=== PATIENT | female | born 1945 | race Caucasian/White ===

== ENCOUNTER 2016-10-20 21:41 | Inpatient (IN) | payer OTHER ==
[~2016-10-20] VITALS: Ht 152.4 cm; Wt 77.3 kg
[~2016-10-20 21:41] MED LIST: ASPIRIN ADULT L81 M1 PO; CLOPIDOGREL75 MG PO; ISOSORBIDE MONO30 MG PO; METFORMIN HCL500 MG PO; METOPROLOL TART25 MG PO; SIMVASTATIN80 MG PO
--- NOTE | 2016-10-20 23:35 | DIAGNOSTIC IMAGING REPORT ---
PROCEDURE: XR ABDOMEN 1 VIEW INDICATION: VOMITING TECHNIQUE: AP upright view. COMPARISON: None. FINDINGS: There are moderately dilated multiple small bowel loops with air-fluid levels. There is no evidence of free air. There are mild to moderate degenerative changes of the lumbar spine. IMPRESSION: 1. Moderately dilated small bowel loops compatible with obstruction versus ileus.
--- NOTE | 2016-10-20 23:52 | DIAGNOSTIC IMAGING REPORT ---
PROCEDURE: CT ABD/PELVIS WITH CONTRAST INDICATION: Abdominal pain. Vomiting. History of umbilical hernia. TECHNIQUE: 125 ml of Isovue 300 were injected intravenously and axial images were obtained of the entire abdomen and pelvis with sagittal and coronal reformations. COMPARISON: None. FINDINGS: ABDOMEN: There are moderately dilated small bowel loops with transition point in the dxi-cv-gwkics ileum. There is moderate fluid in the right colon. Appendix is not visualized. There are two periumbilical abdominal wall hernias (2 cm and 3 cm) which contain edematous intra-abdominal lipomatous tissue. While there is no evidence of bowel herniation, moderately dilated bowel loops are seen just deep to the defects. There are multiple small calcified gallstones (incidental finding). Liver, spleen, pancreas, kidneys, and aorta (moderate calcified atheromatous changes) are normal. Mild degenerative changes of the lumbar spine. PELVIS: Uterus and adnexal structures are normal. No evidence of free fluid. IMPRESSION: 1. Moderately dilated small bowel loops with transition point in the uoa-qh-huvvuw ileum. Findings are compatible with small bowel obstruction. 2. There are two periumbilical hernia defects containing edematous intra-abdominal lipomatous tissue. While there is no evidence of bowel herniation, distended bowel loops are seen just deep to these defects and may be related or contributing to ileus or obstruction. 3. Cholelithiasis (incidental finding). 4. Findings discussed with Dr. Shorty Schaffer. All CT scans at this facility use dose modulation, iterative reconstruction, and/or weight-based dosing when appropriate to reduce radiation dose to as low as reasonably achievable.
--- NOTE | 2016-10-20 23:52 | DIAGNOSTIC IMAGING REPORT ---
PROCEDURE: CT ABD/PELVIS WITH CONTRAST INDICATION: Abdominal pain. Vomiting. History of umbilical hernia. TECHNIQUE: 125 ml of Isovue 300 were injected intravenously and axial images were obtained of the entire abdomen and pelvis with sagittal and coronal reformations. COMPARISON: None. FINDINGS: ABDOMEN: There are moderately dilated small bowel loops with transition point in the fap-oc-scmtml ileum. There is moderate fluid in the right colon. Appendix is not visualized. There are two periumbilical abdominal wall hernias (2 cm and 3 cm) which contain edematous intra-abdominal lipomatous tissue. While there is no evidence of bowel herniation, moderately dilated bowel loops are seen just deep to the defects. There are multiple small calcified gallstones (incidental finding). Liver, spleen, pancreas, kidneys, and aorta (moderate calcified atheromatous changes) are normal. Mild degenerative changes of the lumbar spine. PELVIS: Uterus and adnexal structures are normal. No evidence of free fluid. IMPRESSION: 1. Moderately dilated small bowel loops with transition point in the cry-ec-ztvyeb ileum. Findings are compatible with small bowel obstruction. 2. There are two periumbilical hernia defects containing edematous intra-abdominal lipomatous tissue. While there is no evidence of bowel herniation, distended bowel loops are seen just deep to these defects and may be related or contributing to ileus or obstruction. 3. Cholelithiasis (incidental finding). 4. Findings discussed with Dr. Shorty Schaffer. All CT scans at this facility use dose modulation, iterative reconstruction, and/or weight-based dosing when appropriate to reduce radiation dose to as low as reasonably achievable.
[2016-10-21] VITALS (12 sets, daily range): BP systolic 85–157; BP diastolic 48–74
--- NOTE | 2016-10-21 00:40 | ED CLINICAL REPORT ---
Clinical Report - Physicians/Mid Levels [facility] [address] [place] [address] 10/20/2016 21:42 Patient: DARELL SULLIVAN Time Seen: 21:42; initial patient contact. Arrived- By private vehicle. Historian- patient. HISTORY OF PRESENT ILLNESS Chief Complaint: VOMITING. This started yesterday and is still present (worse since this AM). It was abrupt in onset and has been intermittent. The patient has had nausea, vomiting and abdominal pain. No constipation. The illness is described as moderate. Similar symptoms previously: None. Recent medical care: Not recently seen/assessed. REVIEW OF SYSTEMS No fever or difficulty with urination. All systems otherwise negative, except as recorded above. PAST HISTORY Umbilical Hernia. Hypercholesterolemia. Diabetes Mellitus. Coronary Artery Disease. Hypertension. ADDITIONAL SURGERIES: Cardiac stents. Hernia Repair. . Medications: Aspirin Oral (Tablet 81 mg) 1 tablet, day. MetFORMIN HCl Oral 1000mg, 2x a day. Metoprolol Tartrate Oral 12.5mg, twice a day. Simvastatin Oral 80 mg, daily. Allergies: Penicillins. SOCIAL HISTORY Never smoker. No alcohol use or drug use. ADDITIONAL NOTES The nursing notes have been reviewed with agreement regarding the chief complaint, PMH and patient medications and allergies. PHYSICAL EXAM Appearance: Alert. Oriented X3. Appears to be in pain. Patient in mild distress. Eyes: Eyes normal inspection. No scleral icterus. ENT: Dry mucous membranes present. CVS: Tachycardia. Heart sounds normal. Rhythm normal. Respiratory: No respiratory distress. Breath sounds normal. Abdomen: Soft. Moderate tenderness diffusely with guarding present. No rebound tenderness or Vazquez's sign present. Abnormal bowel sounds: diminished and high pitched. No organomegaly. No mass. Distention. Mildly obese. (Periumbilical hernia). Back: Normal inspection. No CVA tenderness. Skin: Normal skin color. No rash. Extremities: No lower extremity edema. Neuro: Oriented X 3. LABS, X-RAYS, AND EKG KUB: Diffuse abnormal gas pattern with air fluid levels. Findings consistent with an obstruction. No pneumoperitoneum. Views: AP. Technique: good. The X-rays were independently viewed by me and interpreted contemporaneously by me. Prior films were not available for comparison. Interpretation time: 22:50. Abdominal CT: 1. Moderately dilated small bowel loops with transition point in the ojl-iz-wfiuso ileum. Findings are compatible with small bowel obstruction. 2. There are two periumbilical hernia defects containing edematous intra-abdominal lipomatous tissue. While there is no evidence of bowel herniation, distended bowel loops are seen just deep to these defects and may be related or contributing to ileus or obstruction. 3. Cholelithiasis (incidental finding). Abdominal CT performed with IV contrast. The study was independently viewed by me, interpreted by the radiologist and discussed with the radiologist. Interpretation time: 00:28. Laboratory Tests: CBC w Diff: (HAKEEM: 10/20/2016 21:50) ( MsgRcvd 10/20/2016 22:23) Final results Test Result Flag Units (Reference) WHITE BLOOD COUNT 5.4 K/uL (4.5-11.5) RED BLOOD COUNT 5.57 H M/uL (4.00-5.20) HEMOGLOBIN 16.5 H gm/dL (12.0-16.0) HEMATOCRIT 49.9 H % (36.0-46.0) MEAN CELL VOLUME 89 fL (80-100) MEAN CORPUSCULAR HGB 30 pg (26-34) MEAN CORPUSCULAR HGB CONC 33 g/dL (31-37) RED CELL DISTRIBUTION WIDTH 13.8 % (11.6-14.8) PLATELET COUNT 235 K/uL (150-400) NEUTROPHIL % 82.9 H % (50-75) LYMPH % 15.2 L % (25-40) MONO % 1.7 L % (3-14) EOSINOPHIL % 0.1 % (0-4) BASOPHIL % 0.1 % (0-2) CMP: (HAKEEM: 10/20/2016 21:50) ( MsgRcvd 10/20/2016 22:34) Final results Test Result Flag Units (Reference) GLUCOSE 228 H mg/dL (70-110) BUN 17 mg/dL (7-18) CREATININE 1.2 mg/dL (0.6-1.3) Estimated GFR 47.07 mL/min Estimated GFR- 57.05 mL/min Note: Persistent reduction over 3 months in eGFR<60 mL/min/1.73 m2 defines CKD. Patients with eGFR values>=60 mL/min/1.73 m2 may also have CKD if evidence ofpersistent proteinuria. Additional information may be foundat www.kidney.org. SODIUM 133 L mmol/L (136-145) POTASSIUM 4.5 mmol/L (3.5-5.1) CHLORIDE 94 L mmol/L (98-107) CARBON DIOXIDE 21 mmol/L (21-32) CALCIUM 10.8 H mg/dL (8.5-10.1) TOTAL PROTEIN 9.2 H g/dL (6.4-8.2) ALBUMIN 4.6 g/dL (3.3-5.0) BILIRUBIN, TOTAL 1.8 H mg/dL (0.0-1.0) ALKALINE PHOSPHATASE 106 U/L (46-116) AST (SGOT) 25 U/L (15-37) ALT (SGPT) 28 U/L (12-78) LIPASE 119 U/L (73-393) AMYLASE 36 U/L (25-115) TROPONIN I <0.05 ng/mL (0.00-1.5) TROPONIN REFERENCE RANGE:<0.1 NEGATIVE0.1-1.5 INDETERMINANT>1.5 POSITIVE . PROGRESS AND PROCEDURES Discussed case with on-call health care provider, (call returned 00:30 Dr. Reyna. Will consult, admit to hospitalist and start SBO orders.). Reviewed test results and need for additional work-up. Agreed upon decision to admit. Health care provider will see patient in hospital. Discussed case with hospitalist, (call returned 00:49). Reviewed test results. Health care provider will see patient in ED. Disposition: Admitted to Acute Care. Condition: good. Admit decision based on need for further evaluation, additional testing and IV hydration and medications. CLINICAL IMPRESSION Partial small bowel obstruction associated with hernia. No gangrene noted with hernia. INSTRUCTIONS Follow-up: Blood pressure screening was not performed during this visit because the patient has an active diagnosis of hypertension. The patient was admitted and blood pressure will be managed during the admission. (Electronically signed by Shorty Schaffer Dr. 03/15/2017 1:16)
--- NOTE | 2016-10-21 00:40 | ED ORDER SUMMARY ---
..... Patient: DARELL SULLIVAN OrderSheet [facility] VisitID: [id number] [place] [address] 71y, F Registration Date/Time: 10/20/2016 ORDER SHEET Weight: 72.5 kg (stated) Allergies: Penicillins GENERAL ORDERS: CBC w Diff Urgent (21:53 10/20/2016 EInderbitzen R.N. verbal order read back to Marcello Trinh) (Ack 21:58 SRedmond) (22:12 EInderbitzen R.N.) CMP Urgent (21:53 10/20/2016 EInderbitzen R.N. verbal order read back to Marcello Trinh) (Ack 21:58 SRedmond) (22:12 EInderbitzen R.N.) UA-Culture if indicated Urgent (21:53 10/20/2016 EInderbitzen R.N. verbal order read back to Marcello Trinh) (Ack 21:58 SRedmond) Amylase Urgent (21:53 10/20/2016 EInderbitzen R.N. verbal order read back to Marcello Trinh) (Ack 21:58 SRedmond) (22:12 EInderbitzen R.N.) Lipase Urgent (21:53 10/20/2016 EInderbitzen R.N. verbal order read back to Marcello Trinh) (Ack 21:58 SRedmond) (22:12 EInderbitzen R.N.) Troponin-I Urgent (21:53 10/20/2016 EInderbitzen R.N. verbal order read back to Marcello Trinh) (Ack 21:58 SRedmond) (22:12 EInderbitzen R.N.) Abdomen 1V Urgent (22:06 10/20/2016 Marcello Trinh) (Ack 22:12 SRedmond) (22:26 LMuller) CT Abd/Pel w Cont (Yes) (1.2) Urgent (22:41 10/20/2016 Marcello Trinh) (Ack 22:42 SRedmond) (23:15 LMuller) MEDICATION ORDERS: IV FLUIDS: Zofran IV 4 mg (NOW) (22:06 10/20/2016 Marcello Trinh) (22:15 EInderbitzen R.N.) Morphine IV 4 mg (HIGH ALERT MEDICATION, NOW) (22:06 10/20/2016 Marcello Trinh) (22:15 EInderbitzen R.N.) IV NS : initial bolus none -, then 1000 mL/hr for 30m (NOW); Urgent (22:13 10/20/2016 EInderbitzen R.N. verbal order read back to Marcello Trinh) (22:14 EInderbitzen R.N.) IV Saline Lock (22:13 10/20/2016 EInderkarin R.N. verbal order read back to Marcello Trinh) (22:14 EInderbitzen R.N.) IV NS : initial bolus none -, then 1000 mL/hr for 30m (NOW) (00:04 10/21/2016 Kelierkarin R.N. verbal order read back to Marcello Trinh) (Cancelled: Duplicate Order0:06 EInderbitzen R.N.) ORDER SHEET NOTES: [Electronically signed by Shorty Schaffer Dr. (01:16 10/21/2016)] [Electronically signed by Anastasiya Powell R.N. (01:10/21/2016)] [Electronically locked/signed by Anastasiya Powell R.N. (01:10/21/2016)]
--- NOTE | 2016-10-21 00:40 | ED NURSING NOTES ---
Clinical Report - Nurses [facility] [address] [place] [address] 10/20/2016 21:42 Patient: DARELL SULLIVAN TRIAGE Triage time 21:Oct 20 2016. Acuity: LEVEL 3. Chief Complaint: NAUSEA and VOMITING (ABDOMINAL PAIN). 21:41 10/20/16. SEPSIS SCREEN: Sepsis Screen. Negative (no infection suspected/documented). DOM COMA SCORE: Dom Coma Scale: 15- eyes open spontaneously (4); best verbal response- oriented x 4 (5); best motor response- obeys commands (6). --21:47 Anastasiya Powell R.N. 21:41 10/20/16. BP: 182/86. HR: 113. RR: 20. O2 saturation: 99%. Temp: 97.5 F. --21:47 Anastasiya Powell R.N. Weight: 72.5 kg stated. Height/Length: 62 inches Per Patient. BMI: 29.3. --21:40 Anastasiya Powell R.N. Medications Aspirin Oral (Tablet 81 mg) 1 tablet, day. MetFORMIN HCl Oral 1000mg, 2x a day. Metoprolol Tartrate Oral 12.5mg, twice a day. Simvastatin Oral 80 mg, daily. --21:57 Anastasiya Powell R.N. Medication/allergy information source: the patient. --21:47 Anastasiya Powell R.N. Allergies Penicillins. --21:57 Anastasiya Powell R.N. The following entry was struck by Anastasiya Powell R.N., 21:57 (10/20/16) Reason - wrong value. <<STRICKEN ENTRY-- No Known Drug Allergy. --21:45 Anastasiya Powell R.N. --END STRIKE>>. History Arrived by EMS. Historian: patient. Accompanied by family. ( DIAGNOSED WITH UMBILICAL HERNIA 1 YEAR AGO, N/V SINCE YESTERDAY. vomited about 6 times today). No fever, weakness, cough, difficulty breathing or skin rash. Denies muscle aches. Treatment DRY MAN: None. Finger stick glucose performed (214). SOCIAL HX: Never smoker. No alcohol use or drug use. No infectious disease exposure. ABUSE ASSESSMENT: No report of abuse. SELF HARM ASSESSMENT: A self harm assessment was performed. The patient answered "no" to the question "Have you recently felt down, depressed, or hopeless?", "Have you noticed less interest or pleasure in doing things?", "Do you have thoughts of harming or killing yourself?", "Are you here because you tried to hurt yourself?", "Have you ever tried to hurt yourself before today?", "Have you recently had thoughts about harming or killing others?" and "Do you have any dangerous items in your possession?". NUTRITIONAL RISK ASSESSMENT: The nutritional risk assessment revealed no deficiencies. FUNCTIONAL ASSESSMENT: Functional assessment: no impairments noted. LEARNING NEEDS ASSESSMENT: The learning needs assessment revealed no barriers. SKIN INTEGRITY ASSESSMENT: Skin integrity risk assessment completed. No skin integrity risk identified. --21:47 Anastasiya Powell R.N. PROBLEMS: Umbilical Hernia. Hypercholesterolemia. Diabetes Mellitus. Coronary Artery Disease. --21:46 Anastasiya Powell R.N. Hypertension. --21:57 Anastasiya Powell R.N. ADDITIONAL SURGERIES: Cardiac stents. Hernia Repair. --21:46 Anastasiya Powell R.N. . --21:57 Anastasiya Powell R.N. Interventions ID band on patient. --21:47 Anastasiya Powell R.N. PHYSICAL ASSESSMENT 21:49 10/20/16. GENERAL / NEURO / PSYCH: Alert. Oriented X 4. Appears in distress. HEENT: Pupils equal, round and reactive to light. Mucous membranes are pink. RESPIRATORY: Breath sounds within normal limits. CVS: Capillary refill less than 2 seconds. Pulses within normal limits. GI / : ( llq close to umbilicus, hernia is present). Abdomen soft. SKIN: Skin intact. Skin is warm and dry. Normal skin turgor. --21:49 Anastasiya Powell R.N. NURSING PROGRESS NOTES 21:48 10/20/2016 Site #1 started via IV in the left antecubital space with an 20g angiocath, with aseptic technique and good blood return; one attempt. Blood drawn: rainbow set. Labeled in the presence of the patient and sent to the lab. --21:48 Anastasiya Powell R.N. 21:48 10/20/16. The initial plan of care for this patient includes an assessment with efforts to address the presence of pain; impairment of the gastrointestinal system. This plan of care was discussed with the patient. Patient gowned. Reassurance given to the patient. Patient identifiers checked. Call light placed in reach. Side rails up x 2. Bed placed in lowest position. Brakes of bed on. Patient ready for evaluation. --21:48 Ansatasiya Powell R.N. 21:50 10/20/2016 Started bag #1 1000 mL IV Fluids IV NS (Saline); at 1000 mL/hr over 30 minute(s) via site #1 via IV pump. Allergies verified and confirmed 5 rights. IV patency established. IV site checked: no pain, redness, or swelling. IV flushed thoroughly pre- and post-medication administration. --22:14 Anastasiya Powell R.N. 22:10 10/20/2016 Zofran (Ondansetron HCl) IVP 4 mg given over 1 minute(s) via site #1. Allergies verified and confirmed 5 rights. IV patency established. IV site checked: no pain, redness, or swelling. IV flushed thoroughly pre- and post-medication administration. IVP given by RN. --22:15 Anastasiya Powell R.N. 22:12 10/20/2016 Morphine IVP 4 mg given over 1 minute(s) via site #1. Allergies verified, confirmed 5 rights and sedative warning given to the patient and patient's family. IV patency established. IV site checked: no pain, redness, or swelling. IV flushed thoroughly pre- and post-medication administration. IVP given by RN. --22:15 Anastasiya Powell RMamieNMamie 22:52 10/20/16. Reassessment after fluids administered and medication administered. She is calm and resting quietly and has had no adverse reaction. --22:53 Anastasiya Powell R.NMamie 22:52 10/20/16. BP: 125/72. HR: 103. RR: 18. O2 saturation: 97%. Pain level now 11/16. --22:53 Anastasiya Powell R.N. 00:03 10/21/16. BP: 157/86. HR: 101. RR: 18. O2 saturation: 99%. Pain level now 09/18. --00:03 Anastasiya Powell R.NMamie 22:20 10/20/2016 Started bag #1 500 mL IV Fluids IV NS (Saline); at 1000 mL/hr over 30 minute(s) via site #1 via IV pump. Allergies verified and confirmed 5 rights. IV patency established. IV site checked: no pain, redness, or swelling. IV flushed thoroughly pre- and post-medication administration. --00:06 Anastasiya Powell R.NMamie 22:20 10/20/2016 IV Fluids IV NS Discontinued: completed. Total amount infused: 500 mL. IV patency established. IV site checked: no pain, redness, or swelling. IV flushed thoroughly. --00:04 Anastasiya Powell R.NMamie 22:50 10/20/2016 IV Fluids IV NS Discontinued: completed. Total amount infused: 500 mL. IV patency established. IV site checked: no pain, redness, or swelling. IV flushed thoroughly. --00:06 Anastasiya Powell R.N. 00:03 10/21/16. The patient is resting quietly. RESPIRATORY: No respiratory distress. SKIN: Skin is warm and dry. Skin color within normal limits. --00:03 Anastasiya Powell R.N. 00:46 10/21/16. 16 fr NG tube inserted with no difficulty. Placement confirmed by auscultation and return of gastric contents. Return: green fluid. Tube secured. Attached to low and intermittent suction. Patient tolerated procedure well. --00:53 Anastasiya Powell R.N. 00:54 10/21/16. --00:54 Anastasiya Powell R.N. 00:53 10/21/16. BP: 150/69. HR: 121. RR: 18. O2 saturation: 95%. Pain level now: 09/18. --00:54 Anastasiya Powell R.N. Intake & Output 01:11 10/21/16. IV fluids: 1000. Gastric output: 200; return noted as green. --01:12 Anastasiya Powell R.NMamie DISPOSITION / DISCHARGE 01:14 10/21/2016 Site #[address] upon admission. Converted to saline lock. --01:14 Anastasiya Powell R.NMamie 01:15 10/21/16. Condition at departure: improved and stable. The goals identified in the patient's plan of care were met. Admitted to Acute Care (204 B). Report was given to a nurse via a phone call. Report included patient's care, treatment, medications, reviewed medication reconcilliation, and condition (including any recent changes or anticipated changes). All questions were answered. Report was acknowledged. (to SALVADOR Teixeira). --01:15 Anastasiya Powell R.NMamie 00:53 10/21/16. BP: 150/69. HR: 121. RR: 18. O2 saturation: 95%. Pain level now: 09/18. 00:02 10/21/16. BP: 157/86. HR: 101. RR: 18. O2 saturation: 99%. Pain level now 09/18. 22:52 10/20/16. BP: 125/72. HR: 103. RR: 18. O2 saturation: 97%. Pain level now 11/16. 21:41 10/20/16. BP: 182/86. HR: 113. RR: 20. O2 saturation: 99%. Temp: 97.5 F. --01:15 Anastasiya Powell R.NMamie 01:17 10/21/16. ( NG tube was placed in right nare). --01:17 Anastasiya Powell R.N. Departure time: 01:21 Oct 21 2016. --01:21 Anastasiya Powell R.N. Locked/Released at 10/21/2016 1:21 by Anastasiya Powell R.N.
--- NOTE | 2016-10-21 00:40 | ED ORDER SUMMARY ---
..... Patient: DARELL SULLIVAN OrderSheet [facility] VisitID: [id number] [place] [address] 71y, F Registration Date/Time: 10/20/2016 ORDER SHEET Weight: 72.5 kg (stated) Allergies: Penicillins GENERAL ORDERS: CBC w Diff Urgent (21:53 10/20/2016 EInderbitzen R.N. verbal order read back to Marcello Trinh) (Ack 21:58 SRedmond) (22:12 EInderbitzen R.N.) CMP Urgent (21:53 10/20/2016 EInderbitzen R.N. verbal order read back to Marcello Trinh) (Ack 21:58 SRedmond) (22:12 EInderbitzen R.N.) UA-Culture if indicated Urgent (21:53 10/20/2016 EInderbitzen R.N. verbal order read back to Marcello Trinh) (Ack 21:58 SRedmond) Amylase Urgent (21:53 10/20/2016 EInderbitzen R.N. verbal order read back to Marcello Trinh) (Ack 21:58 SRedmond) (22:12 EInderbitzen R.N.) Lipase Urgent (21:53 10/20/2016 EInderbitzen R.N. verbal order read back to Marcello Trinh) (Ack 21:58 SRedmond) (22:12 EInderbitzen R.N.) Troponin-I Urgent (21:53 10/20/2016 EInderbitzen R.N. verbal order read back to Marcello Trinh) (Ack 21:58 SRedmond) (22:12 EInderbitzen R.N.) Abdomen 1V Urgent (22:06 10/20/2016 Marcello Trinh) (Ack 22:12 SRedmond) (22:26 LMuller) CT Abd/Pel w Cont (Yes) (1.2) Urgent (22:41 10/20/2016 Marcello Trinh) (Ack 22:42 SRedmond) (23:15 LMuller) MEDICATION ORDERS: IV FLUIDS: Zofran IV 4 mg (NOW) (22:06 10/20/2016 Marcello Trinh) (22:15 EInderbitzen R.N.) Morphine IV 4 mg (HIGH ALERT MEDICATION, NOW) (22:06 10/20/2016 Marcello Trinh) (22:15 EInderbitzen R.N.) IV NS : initial bolus none -, then 1000 mL/hr for 30m (NOW); Urgent (22:13 10/20/2016 EInderbitzen R.N. verbal order read back to Marcello Trinh) (22:14 EInderbitzen R.N.) IV Saline Lock (22:13 10/20/2016 EInderkarin R.N. verbal order read back to Marcello Trinh) (22:14 EInderbitzen R.N.) IV NS : initial bolus none -, then 1000 mL/hr for 30m (NOW) (00:04 10/21/2016 Kelierkarin R.N. verbal order read back to Marcello Trinh) (Cancelled: Duplicate Order0:06 EInderbitzen R.N.) ORDER SHEET NOTES: [Electronically signed by Shorty Schaffer Dr. (01:16 10/21/2016)] [Electronically signed by Anastasiya Powell R.N. (01:10/21/2016)] [Electronically locked/signed by Anastasiya Powell R.N. (01:10/21/2016)]
--- NOTE | 2016-10-21 01:21 | ED DISCHARGE INSTRUCTIONS ---
Patient: DARELL SULLIVAN General Instructions [facility] VisitID: [id number] [address] [place] [address] 71y, F Registration Date/Time: 10/20/2016 Partial small bowel obstruction associated with hernia. No gangrene noted with hernia. INSTRUCTIONS Follow-up: Blood pressure screening was not performed during this visit because the patient has an active diagnosis of hypertension. The patient was admitted and blood pressure will be managed during the admission. (Electronically signed by Shorty Schaffer Dr. 10/21/2016 1:16)
--- NOTE | 2016-10-21 01:21 | ED DISCHARGE INSTRUCTIONS ---
Patient: DARELL SULLIVAN General Instructions [facility] VisitID: [id number] [address] [place] [address] 71y, F Registration Date/Time: 10/20/2016 Partial small bowel obstruction associated with hernia. No gangrene noted with hernia. INSTRUCTIONS Follow-up: Blood pressure screening was not performed during this visit because the patient has an active diagnosis of hypertension. The patient was admitted and blood pressure will be managed during the admission. (Electronically signed by Shorty Schaffer Dr. 10/21/2016 1:16)
--- NOTE | 2016-10-21 01:21 | ED MED RECONCILIATION SUMMARY ---
Patient: DARELL SULLIVAN Medication Reconciliation Report [facility] VisitID: [id number] [address] [place] [address] 71y, F Registration Date/Time: 10/20/2016 Weight: 72.5 kg Height/Length: 62 in. BMI: 29.3 ALLERGIES: Penicillins The patient's Home Medications are listed below: THE FOLLOWING MEDICATIONS NEED TO BE RECONCILED: Aspirin Oral (81 mg) 1 tablet, day MetFORMIN HCl Oral 1000mg, 2x a day Metoprolol Tartrate Oral 12.5mg, twice a day Simvastatin Oral 80 mg, daily The source(s) of the original Home Medication information: patient The following Medications were given to the patient in the Emergency Department: IV NS IV Fluids bolus 0, then 1000 mL/hr, administered: 10/20/2016 9:50:00 PM Zofran [IVP] IVP 4 mg, administered: 10/20/2016 10:10:00 PM Morphine [IVP] IVP 4 mg, administered: 10/20/2016 10:12:00 PM IV NS IV Fluids bolus 0, then 1000 mL/hr, administered: 10/20/2016 10:20:00 PM The following Medications were prescribed to the patient: None.
--- NOTE | 2016-10-21 01:21 | ED MED RECONCILIATION SUMMARY ---
Patient: DARELL SULLIVAN Medication Reconciliation Report [facility] VisitID: [id number] [address] [place] [address] 71y, F Registration Date/Time: 10/20/2016 Weight: 72.5 kg Height/Length: 62 in. BMI: 29.3 ALLERGIES: Penicillins The patient's Home Medications are listed below: THE FOLLOWING MEDICATIONS NEED TO BE RECONCILED: Aspirin Oral (81 mg) 1 tablet, day MetFORMIN HCl Oral 1000mg, 2x a day Metoprolol Tartrate Oral 12.5mg, twice a day Simvastatin Oral 80 mg, daily The source(s) of the original Home Medication information: patient The following Medications were given to the patient in the Emergency Department: IV NS IV Fluids bolus 0, then 1000 mL/hr, administered: 10/20/2016 9:50:00 PM Zofran [IVP] IVP 4 mg, administered: 10/20/2016 10:10:00 PM Morphine [IVP] IVP 4 mg, administered: 10/20/2016 10:12:00 PM IV NS IV Fluids bolus 0, then 1000 mL/hr, administered: 10/20/2016 10:20:00 PM The following Medications were prescribed to the patient: None.
--- NOTE | 2016-10-21 01:21 | ED MAR SUMMARY ---
..... Medication Administration Record [facility] [address] [place] [address] Patient: DARELL SULLIVAN Visit ID: [id number] 71y, F Weight: 72.5 kg Height/Length: 62 in BMI: 29.3 ALLERGIES: Penicillins Start 21:50 10/20/2016 Anastasiya Powell RMamieN., Stop 22:20 10/20/2016 Anastasiya Powell R.N. Medication Administered: IV NS (SALINE), Dose: IV Fluids over 30 minute(s), Rate: 1000 mL/hr, Dispensed: 1000 mL bag, Site: #1 left AC. Medication Ordered: IV NS : initial bolus none -, then 1000 mL/hr for 30m (NOW); Urgent. Given 22:10 10/20/2016 Anastasiya Powell R.N. Medication Administered: ZOFRAN [IVP] (ONDANSETRON HCL), Dose: 4 mg IVP over 1 minute(s), Site: #1 left AC. Medication Ordered: Zofran IV 4 mg (NOW). Given 22:12 10/20/2016 Anastasiya Powell R.N. Medication Administered: MORPHINE [IVP], Dose: 4 mg IVP over 1 minute(s), Site: #1 left AC. Medication Ordered: Morphine IV 4 mg (HIGH ALERT MEDICATION, NOW). Start 22:10/20/2016 Anastasiya Powell RMamieN., Stop 22:50 10/20/2016 Anastasiya Powell R.N. Medication Administered: IV NS (SALINE), Dose: IV Fluids over 30 minute(s), Rate: 1000 mL/hr, Dispensed: 500 mL bag, Site: #1 left AC. Medication Ordered: IV NS : initial bolus none -, then 1000 mL/hr for 30m (NOW); Urgent.
--- NOTE | 2016-10-21 01:21 | ED MAR SUMMARY ---
..... Medication Administration Record [facility] [address] [place] [address] Patient: DARELL SULLIVAN Visit ID: [id number] 71y, F Weight: 72.5 kg Height/Length: 62 in BMI: 29.3 ALLERGIES: Penicillins Start 21:50 10/20/2016 Anastasiya Powell RMamieN., Stop 22:20 10/20/2016 Anastasiya Powell R.N. Medication Administered: IV NS (SALINE), Dose: IV Fluids over 30 minute(s), Rate: 1000 mL/hr, Dispensed: 1000 mL bag, Site: #1 left AC. Medication Ordered: IV NS : initial bolus none -, then 1000 mL/hr for 30m (NOW); Urgent. Given 22:10 10/20/2016 Anastasiya Powell R.N. Medication Administered: ZOFRAN [IVP] (ONDANSETRON HCL), Dose: 4 mg IVP over 1 minute(s), Site: #1 left AC. Medication Ordered: Zofran IV 4 mg (NOW). Given 22:12 10/20/2016 Anastasiya Powell R.N. Medication Administered: MORPHINE [IVP], Dose: 4 mg IVP over 1 minute(s), Site: #1 left AC. Medication Ordered: Morphine IV 4 mg (HIGH ALERT MEDICATION, NOW). Start 22:10/20/2016 Anastasiya Powell RMamieN., Stop 22:50 10/20/2016 Anastasiya Powell R.N. Medication Administered: IV NS (SALINE), Dose: IV Fluids over 30 minute(s), Rate: 1000 mL/hr, Dispensed: 500 mL bag, Site: #1 left AC. Medication Ordered: IV NS : initial bolus none -, then 1000 mL/hr for 30m (NOW); Urgent.
--- NOTE | 2016-10-21 03:48 | HISTORY AND PHYSICAL ---
ADMITTED: 10/21/2016 CHIEF COMPLAINT: 1. Abdominal pain HISTORY OF PRESENT ILLNESS: This is a 71-year-old female with a significant coronary artery disease history, presenting to the emergency department with complaints of abdominal pain. The patient states that approximately 2 days prior to presentation she started having abdominal pain and it actually improved; however, on the morning of presentation, her abdominal pain got worse and she started vomiting profusely. She lost track of how many times she was vomiting; however, it became more and more like stool and she came to the emergency department. She had 1 small bowel movement over the last 2 days, but otherwise her last normal bowel movement was 3-4 days ago. She states that was a normal bowel movement and it was not constipation. She has a history of C- sections x1, but no other abdominal surgeries. MEDICAL/SURGICAL HISTORY: Past medical history; She has had angiograms x3, in approximately 2002, 2004 and 2011 and during her most recent angiogram in 2011, she did have 3 stents placed. She states this was performed in [place]. The patient also reports a history of diabetes, dyslipidemia, hypertension. MEDICATIONS: 1. Aspirin 81 mg p.o. daily. 1. Metformin 1000 mg p.o. b.i.d. 2. Metoprolol 12.5 mg p.o. b.i.d. 3. Simvastatin 80 mg p.o. daily. 4. The patient states she does take a fourth medication, but cannot remember the name of it. ALLERGIES: 1. PENICILLIN. SOCIAL HISTORY: The patient lives with her and grandson. She denies any history of current smoking, drug use, or alcohol use. FAMILY HISTORY: Son with hypertension and another son with an myocardial infarction. Daughter with IBS. REVIEW OF SYSTEMS: She denies any dysuria, hematuria, frequency, or urgency. She denies any hematemesis, hematochezia, or melena. PHYSICAL EXAMINATION: VITAL SIGNS: Blood pressure was initially 182/86 on presentation and is now down to 157/74, pulse was initially 113, had slightly decreased to 100 with some IV fluids but now is up to 121, again, respiratory rate is 18, O2 saturation 98% on room air. When she presented, she was afebrile. She is now febrile at 38.4 degrees Fahrenheit. GENERAL: This is an elderly patient lying in bed in no apparent distress. HEENT: Head is atraumatic, normocephalic. Pupils are equal, round, and reactive to light with accommodation bilaterally. Extraocular muscles are intact bilaterally. Oropharynx is nonerythematous without exudates, but tachycardic. NECK: Trachea is midline. There is no JVD. HEART: S1, S2, regular rate and rhythm. No S3, S4, gallops, or rubs. There is a 2/6 systolic murmur increased at the base. LUNGS: Clear to auscultation bilaterally. ABDOMEN: Soft, nondistended, but with diffuse tenderness, but no peritoneal signs and no bowel sounds. There is no peripheral edema. LAB/IMAGING: Sodium is 133, potassium is 4.5, chloride is 94, bicarbonate is 21, BUN of 17, creatinine 1.2, glucose is 228, calcium of 10.8, albumin 4.6, total bilirubin of 1.8, alkaline phosphatase of 106, AST 25, ALT 28, lipase of 119, amylase of 36, troponin less than 0.5. White blood cell count 5.4, hemoglobin 16.9, hematocrit of 49.9, and platelets are 235. Abdominal x-ray shows dilated small bowel. CT scan of the abdomen showed moderate dilated small bowel loops with transition mid to distal ileum, a periumbilical hernia, cholelithiasis. EKG shows sinus tachycardia at 119 beats per minute with a QTc of 455. She has a history of a septal inferior infarct, left atrial enlargement. IMPRESSION: 1. This is a 71-year-old female with a significant history of coronary artery disease, presenting to the emergency department with complaints of abdominal pain, nausea, and vomiting secondary to a small-bowel obstruction who has persistent sinus tachycardia and is now. PLAN: 1. Fluids, electrolytes and nutrition: The patient will be given more IV fluids and if tachycardia is not resolving, Dr. Reyna will be contacted for an urgent evaluation. 2. Cardiac: The patient has significant for coronary artery disease. We will monitor closely. She denies any history of congestive heart failure. 3. Gastrointestinal: The patient has a small-bowel obstruction, likely from adhesions from her previous ; however, also consider other etiologies including intussusception or a bowel mass, which surgery has been consulted and if the patient does not improve shortly, will call them for an urgent evaluation. 4. Infectious disease. The patient is now febrile. I have added on blood cultures and we need to send a urinalysis that was ordered in the emergency department. We will also do a chest x-ray, and if tachycardia is not improving, we will repeat labs urgently. I have also added on lactic acid and procalcitonin. 5. Prophylaxis. The patient is n.p.o. and therefore will be on gastrointestinal ulcer prophylaxis with famotidine. We will do sequential compression devices for deep venous thrombosis prophylaxis. Chemical deep venous thrombosis prophylaxis is contraindicated at this time secondary to the possibility of surgery. CODE STATUS: I HAD A THOROUGH CONVERSATION WITH THE PATIENT ABOUT HER WISHES AND SHE DOES WANT TO BE FULL CODE.
--- NOTE | 2016-10-21 06:27 | DIAGNOSTIC IMAGING REPORT ---
PROCEDURE: XR CHEST 1 VIEW INDICATION: fever, initial encounter TECHNIQUE: Portable AP view 02:57 a.m. COMPARISON: Chest x-ray 06/25/2015 FINDINGS: NG tube in place coiled in the stomach. Lungs are clear. Tortuous aorta. Heart and pulmonary vascularity are normal. Thorax is normal. IMPRESSION: 1. NG tube in place 2. No acute changes
--- NOTE | 2016-10-21 06:54 | NUR ---
PT TO ROOM 203B AROUND 0130 THIS MORNING. ARRIVED ON STRETCHER WITH FACILITY TECH AND DAUGHTER AMBIKA AT BEDSIDE. PT ABLE TO SCOOT FROM STRETCHER TO BED WITH ASSISTANCE. NG IN PLACE IN RIGHT NARE AND APPLIED TO LIS. YELLOW/GREEN OUTPUT NOTED. PT IS ROMANIAN SPEAKING ONLY. CAREPARTNER ABLE TO TRANSLATE AND DAUGHTER ALSO HELPFUL. DR. FAIRBANKS IN TO SEE PT. TELE INITIATED. EKG OBTAINED. IV BOLUS STARTED. LAB WORK DONE. TIKI NOTIFIED AROUND 0600 OF PT CONTINUED WITH TACHYCARDIA UP TO 113 AND FEBRILE TO 101 WITH NORMAL LACTATE AND PROCALCITONIN. NEW ORDERS FOR TORADOL IV AND ANOTHER IV BOLUS 500ML. DONE. OTHERWISE PT COMFORTABLE OVER NIGHT. DR. MOSLEY IN TO SEE PT THIS MORNING. SURGERY SCHEDULED FOR TODAY, EXPLORA. JERE. AN.
--- NOTE | 2016-10-21 07:18 | CONSULTATION REPORT ---
DATE OF CONSULTATION: 10/21/2016 CHIEF COMPLAINT: Abdominal pain. HISTORY OF PRESENT ILLNESS: The patient is a 71-year-old female admitted via the emergency room by Dr. Baca where she presented with a 2-day history of abdominal pain and vomiting. The patient apparently has had only had 1 bowel movement in the last couple of days. The patient underwent a CT of the abdomen, which was reported by Dr. Simmons as moderately dilated small bowel with possible transition point in the mid to distal ileum compatible with small-bowel obstruction, 2 periumbilical hernia defects containing edematous intra-abdominal lipomatous tissue. There is no evidence of bowel within the hernia or distended bowel loops; however, the distended bowel loops are seen deep to these defects. She also was noted to have incidental finding of cholelithiasis. She was admitted with a white count of 5.4, this morning it is 14.9. According to the nursing staff, she has been tachycardic and is running a low-grade temperature since her admission to the [facility]. The patient complains of crampy, colicky abdominal pain but at present she appears to be in no apparent discomfort. MEDICAL/SURGICAL HISTORY: Significant for hypercholesterolemia, diabetes, coronary artery disease, hypertension. The patient has had angiography in 2002, 2004 and 2011 and her last angiography in 2012 resulted in 3 stent placements. The patient has had an umbilical hernia repair and a following the demise of an intrauterine . MEDICATIONS: 1. Aspirin 81 mg daily. 2. Metformin 1000 mg b.i.d. 3. Metoprolol 12.5 mg b.i.d. 4. Simvastatin 80 mg daily. ALLERGIES: 1. PENICILLIN. SOCIAL HISTORY: The patient is . The patient has had 5 children, 1 of them at age 42 from an [place]. The patient does not drink, does not smoke, the patient lives in [place]. FAMILY HISTORY: Mother at a young age, following the patient's . She cannot remember why her mother or exactly her age. Father older age from natural causes. The patient had 2 brothers, one of which is from [place] and 5 sisters who are alive and well. REVIEW OF SYSTEMS: No history of hepatitis, jaundice, rheumatic fever, blood transfusion, heart murmurs requiring antibiotics or bleeding tendencies. Remaining 12-point review of systems is negative. PHYSICAL EXAMINATION: GENERAL: The patient is awake, alert, conversant, appears to be uncomfortable. VITAL SIGNS: Temperature is 101.2, blood pressure 182/86, pulse 113, respirations 20. HEENT: The patient is normocephalic, atraumatic. Pupils equal and reactive. No scleral icterus. External auditory canals clear. No nasal septal defect or discharge. The patient has an NG tube in place, putting out yellowish gastric contents. Throat is clear , not injected. Moist mucous membranes. NECK: Supple. No JVD, carotid bruit or adenopathy. LUNGS: Clear. No rales, rhonchi, or wheezing. O2 saturations 99%. HEART: Regular rhythm with a soft systolic murmur. ABDOMEN: Nondistended. The patient does have an incarcerated hernia just to the upper left of her infraumblical scarl that is tender to palpation. No overlying erythema, no evidence of umbilical hernia. She is tender in the right lower quadrant as well, but no guarding. No masses appreciable. EXTREMITIES: Full range of motion, active and passively. No pretibial or ankle edema. SKIN: Warm and dry with no peripheral cyanosis. NEUROLOGIC: The patient is grossly intact with no focal motor neurological deficits. LYMPHATICS: No cervical, supraclavicular, axillary, or groin adenopathy. LAB/IMAGING: White count 14.9, hemoglobin and hematocrit 13.5 and 41.0 respectively. and her glucose in the emergency department was 228, BUN 17, creatinine 1.2, sodium 133, potassium 4.5, chloride 94, bicarbonate 21. Her total bilirubin is 1.8, slightly elevated. Her alkaline phosphatase, however, is 106, normal. Remaining LFTs are normal as well. Her lipase is 119. IMPRESSION: 1. Incarcerated ventral hernia, possible compromise of the bowel, i.e., torsion. PLAN: Diagnostic laparoscopy and possible open laparotomy. The procedure has been explained to the patient and the daughter who was in attendance, including the potential risk of infection, dehiscence, major structural damage to small bowel, large bowel, resulting in an abscess, sepsis, pneumonia, pulmonary embolus to name a few. The patient understands and agrees to proceed. All questions answered to her satisfaction.
--- NOTE | 2016-10-21 07:51 | NUR ---
AWARE OF LOW BP'S. ANASTHESIA IN TO SEE PT AND AWARE ALSO. PT TO PREOP AT 0730.
--- NOTE | 2016-10-21 08:08 | NUR ---
PATIENT WENT TO OR AT 0730 FOR EXP LAP.
--- NOTE | 2016-10-21 09:21 | NUR ---
DAUGHTER PRESENT FOR INTERVIEW, CONFIRM PROCEURE AND PATIENT'S UNDERSTANDING, UPDATED DURING CASE 0915
--- NOTE | 2016-10-21 10:30 | OPERATIVE REPORT ---
DATE OF SURGERY: 10/21/2016 SURGEON: Young Reyna III, MD FINAL INSPECTOR BALANCE WHEEL: None. PREOPERATIVE DIAGNOSIS: 1. Incarcerated incisional hernia, small-bowel obstruction POSTOPERATIVE DIAGNOSIS: 1. Incarcerated incisional hernia X 2 (omentum), small-bowel obstruction, possible ischemic compromise to terminal ileum PROCEDURE PERFORMED: 1. Diagnostic laparoscopy with reduction of incarcerated incisional hernia ( omentum) 2. Exploratory laparotomy with lysis of interloop adhesions 3. Partial small bowel resection 4. Partial omentectomy ANESTHESIA: General endotracheal. ESTIMATED BLOOD LOSS: Less than 200 mL. FLUIDS: 750 mL of albumin, 500 mL lactated Ringers. URINE OUTPUT: 130 mL during case. DRAINS: The patient had Smith catheter, nasogastric tube and Braden-Amin drain left behind. PATHOLOGY SPECIMEN: A portion of omentum and portion of hernia sac and portion of small bowel/terminal ileum. INDICATIONS: The patient is a 71-year-old female who was admitted to [facility] via the emergency department with abdominal pain and vomiting. The patient has known that she had an incisional hernia for some time, but states at this time it quite uncomfortable for her. CAT scan of her abdomen showed a transition point, small- bowel obstruction in the area of the terminal ileum with incarceration of omentum in the incisional hernia. The patient's white count went from 5 to 14 and she spiked a temperature to 101, became tachycardic. It was felt that we should take her emergently to surgery for at least a diagnostic laparoscopy. SURGICAL FINDINGS: On diagnostic laparoscopy, she was noted to have incarcerated omentum in 2 separate incisional hernias from her previous midline . These hernia sacs containing some serosanguineous fluid. The small bowel in the right lower quadrant appeared to be hemorrhagic. Whether this was a reduction during manipulation preoperatively or a volvulus is a little unclear. The hemorrhage small bowel appeared to be on the antemesenteric surface, the small bowel was wadded up in a ball secondary to inner loop adhesions which were quite extensive in this segment. There was no evidence of purulence in the abdominal cavity or signs of peritonitis. SURGICAL TECHNIQUE: The patient was brought to the operating room and placed in the dorsal supine position where she underwent general endotracheal anesthesia by the anesthesiology department. After proper anesthesia had taken effect, the patient 's abdomen was prepped using Betadine and draped in a sterile fashion. A supraumbilical incision was made and carried down through skin and subcutaneous tissue. A Veress needle was inserted through this site into the abdominal cavity and after ascertaining appropriate position with suction irrigation, a pneumoperitoneum obtained using CO2 insufflation to approximately 14-15 mmHg pressure. Once this pressure was reached, the Veress needle was removed and replaced with a 5 mm trocar. The trocar removed leaving the sleeve behind, through which a laparoscopic video camera was introduced into the abdominal cavity. Under direct visualization, a 10 mm trocar was placed in the right mid abdomen, a 5 mm trocar was placed in the right lower anterior abdominal wall. Each entered the abdominal cavity under direct visualization. The trocars were removed, leaving the sleeves behind, through which laparoscopic instrumentation was introduced in the abdominal cavity. Another 10 mm trocar was placed in the right upper quadrant. It entered the abdominal cavity under direct visualization as well. A 10 mm laparoscope was introduced at this site. We were able then to reduce the incarcerated omentum using a combination of external pressure, traction and electrocautery. Two defects were identified in the midline. Our attention was then turned to exploration of the abdomen where the hemorrhagic bowel was identified in the right lower quadrant. It appeared to be all balled up. It was felt that perhaps resection of this would benefit the patient to prevent further small-bowel obstruction and at least evaluate it for ischemic process. The pneumoperitoneum was released. An infraumbilical incision carried down through skin and subcutaneous tissue was made in the midline over approximately 4 inches. Both hernias were identified, residual incarcerated omentum was resected and handed off the field along with the hernia sac. The small bowel previously identified during laparoscopy was brought up through the incision. The distal portion was transected using a BATSHEVA stapler. The proximal portion interloop adhesions were taken down using sharp Metzenbaum dissection to straighten out the bowel. Once the bowel was straightened out, the small bowel was transected. The mesentery was taken down between clamps, divided and handed off the field. Hemostasis achieved using 3-0 Vicryl ties. The small bowel was approximated in the antimesenteric surface using 3-0 Polysorb seromuscular suture and 2 small enterotomies made at the suture line where an Endo-BATSHEVA stapler was introduced and fired, creating our functional end to end/qfap-bv-zqja anastomosis. A TA-55 stapler was then used to close our enterotomy and the enterotomy staple line was oversewed using 3-0 silk figure-of -eight suture. The anastomosis was palpated and found to be adequate. The small bowel was then allowed to return to the abdominal cavity. The abdominal cavity was irrigated copiously with warm normal saline and antibiotic solution. The irrigant suctioned out and the midline was closed using 0 Prolene continuous suture, subcutaneous tissue was irrigated with warm normal saline and antibiotic solution. A Braden-Amin drain 10 mm was placed in this cavity and brought out through a midline stab incision and secured using 3-0 nylon. The drain was trimmed to length and placed in a subcutaneous pouch. All trocar sites and suture lines were approximated using skin marco antonio. A sterile pressure occlusive dressing was placed over each site. The patient was placed in an abdominal binder. The Braden-Amin drain was attached to bulb suction. The patient was transferred to the recovery room in stable condition. There were no intraoperative or anesthetic complications.
--- NOTE | 2016-10-21 11:00 | NUR ---
PT TRASPORTED TO ACUTE CARE AT 1043. PRIOR D/C FROM PACU PT IS AWAKE AND ALERT. PT STATES MILD ABDOMINAL PAIN. HOWEVER, SHE REFUSED PAIN MEDICATONS EXEPT TORADOL 30 MG IM.PT DENIES NAUSEA. VSS. ABDOMEN IS SOFT. DRESSING IS CLEAN AND DRY. ABDOMINAL BINDER IS IN PLACE. MADAY-DRAIN IS DRAINING SCANT AMOUNT OF RED COLORED FLUID. MAYFIELD CATHETER SECURED, DRAINING JOANNA URINE. U/O 75 ML IN PACU. TALKED TO PT AND PT'S DAUGHTER IN PACU. QUESTISABEL ANSWERED. PT AND HER DAUGHTER VERBALZIED UNDERSTANDING. REPORT GIVEN TO SALVADOR VASQUEZ.
--- NOTE | 2016-10-21 11:03 | NUR ---
PATIENT ARRIVED TO FLOOR FROM PACU AT 1100. ALERT X 4, SOMNOLENT. DAUGHTER AMBIKA IN ROOM. PATIENT DENIES PAIN. ON 2LNC FROM PACU. NO SOB. LUNGS CLEAR. MADAY BULB STRIPPED, SEROSANG DRAINAGE. MAYFIELD CATHETER IN PLACE. NO BT'S AT THIS TIME. NG TO LIS. SCD'D ON IN BED.
--- NOTE | 2016-10-21 12:43 | NUR ---
I discussed with the patient their current medications, possible side effects, and answered questions.
--- NOTE | 2016-10-21 18:54 | NUR ---
PATIENT HAD MAYFIELD OUT AT 1200. VOIDED IN BATHROOM 150CC'S. BLADDER SCANNED PATIENT FOR 104CC'S. PHONE CALL OUT TO . AWAITING CALLBACK AND NEW ORDERS.
--- NOTE | 2016-10-21 18:55 | NUR ---
LATE ENTRY FROM RETURN FROM PACU. PATIENT WITH ABDOMINAL BINDER ON. MIDLINE INCISION WITH DRSG AND GAUZE PLACED TO MIDLINE. CDI.
[2016-10-22 03:04] VITALS: BP 109/51
--- NOTE | 2016-10-22 06:10 | NUR ---
A&OX4. HR TACHY @100-110. TEMP 99-100F. URINE OUPUT AVERAGING 50ML/HR. MONITORING OUTPUT Q4. LUNGS CLEAR. SURGICAL INCISION DRESSINGS C/D/I. ABDOMINAL BINDER IN PLACE. AMBULATING HALLS. PAIN MINIMAL. MEDICATED ONCE. NG TO LIS AND HAS HAD NO OUTPUT THIS SHIFT. MINIMAL OUTPUT TO MADAY. WCTM.
[2016-10-22 06:32] VITALS: BP 128/68
--- NOTE | 2016-10-22 07:33 | NUR ---
PATIENT SITTING UP IN CHAIR THIS AM. ENCOURAGED PATIENT TO AMBULATE AND SHE SAID SHE WOULD IN A LITTLE BIT. DAUGHTER STATED SHE HADN'T WALKED SINCE 12 OR 1 AM. PATIENT AMBULATED WITH DAUGHTER 2 LOOPS IN HALLS. ENCOURAGED PATIENT SHE NEEDS TO AMBULATE OFTEN TO HELP INCREASE MOTILITY AND TO PASS FLATUS. PATIENT DENIES PAIN. BT''S HYPO AT R SIDE ONLY. SEE SHIFT ASSESSMENT FOR FURTHER DETAILS.
[2016-10-22 10:13] VITALS: BP 126/68
--- NOTE | 2016-10-22 13:24 | NUR ---
NUTRITION ASSESSMENT: S: Pt admitted with incarcerated hernia, SBO diab lap with hernia rep with DANIELLE 10/21, umbilical hernia. PMH includes CAD, diabetes, dyslipidemia, HTN. Pt is currently NPO at this time, NG in place. O: Diet Rx: NPO NKFA Wts: 73.1 Ht: 60" BMI: 31.5 IBW: 44-57 %IBW: 128% ABW: 62 kg Est Kcals: ~5404-8274 kcals per day Est Pro: ~60-75 g per day Est Fluids: ~1860 nmls per day Meds Incl: aspirin, IVFs, low dose SSI, metocloperamide, metoprolol, IVF, KCL, see eMar for complete list. Skin: Carlos A Score 21, surgical inc Accuchecks: 143-190 A: Pt continues NPO, may want to consider nutrition support if NPO prolonged, RD avail for recommendations if desired. Will continue to monitor closley. P: 1. Consider nutrition support.
[2016-10-22 14:35] VITALS: BP 102/59
--- NOTE | 2016-10-22 16:44 | NUR ---
SHIFT REPORT RECEIVED FROM VINCENZO FRANCO. PT IS SITTING IN CHAIR, DENIES PAIN UNLESS MADAY DRAIN IS TOUCHED. NO COMPLAINTS. NO CP, NAUSEA, NOR FLATUS AT THIS TIME. MONITORING URINE OUTPUT. ALL DRESSINGS CDI. PT IS AMBULATING HALLWAY Q2 TO INCREASE MOTILITY. NO SOB. TELE IS SR WITH TACHY HR ASYMPTOMATIC. FAMILY IN ROOM TO TRANSLATE. NG IS PATENT WITH MINIMAL OUTPUT OF DARK GREEN FLUID. CALL LIGHT IS ADJACENT TO PT. CURRENTLY SITTING IN CHAIR. TM.
--- NOTE | 2016-10-22 18:06 | Progress Note ---
Subjective General Patient seen and examined. Patient is doing well overnight with no acute problems. Patients pain is controlled with pain medications. Patient additionally has not had any return of bowel function as of yet. Will continue to monitor. Constitutional Denies: Fever, Chills, Sweats, Weakness, Malaise, Other. Eyes Denies: Pain, Vision Change, Conjunctival Inflammation, Eyelid Inflammation, Redness, Other. ENT Denies: Ear Pain, Ear Discharge, Nose Pain, Nasal Discharge, Nasal Congestion, Mouth Pain, Mouth Swelling, Throat Pain, Throat Swelling, Other. Respiratory Denies: Cough, Dry, SOB w/exertion, Wheezing, Hemoptysis, Pleuritic Pain, Sputum , Other. Cardiovascular Denies: Chest Pain, Palpitations, Orthopnea, PND, Edema, Light-headedness, Other. Gastrointestinal Abdominal Pain. Denies: Nausea, Vomiting, Diarrhea, Constipation, Melena, Hematochezia, Other. Genitourinary Denies: Dysuria, Frequency, Incontinence, Hematuria, Retention, Other. Musculoskeletal Denies: Neck Pain, Shoulder Pain, Arm Pain, Back Pain, Hand Pain, Leg Pain, Foot Pain, Other. Skin Denies: Rash, Lesions, Jaundice, Bruising, Other. Neurological Denies: Weakness, Numbness, Incoordination, Change in speech, Confusion, Seizures, Other. Physical Exam Vital Signs / I&Os Vital Signs Date Time Temp Pulse Resp B/P Pulse O2 O2 Flow FiO2 Ox Delivery Rate 10/22 1540 Room Air 3.0 10/22 1435 98.1 81 18 102/59 97 Room Air 10/22 1013 98.1 98 18 126/68 94 Room Air 10/22 0735 97 10/22 0632 98.4 108 18 128/68 92 Room Air 10/22 0304 99.1 105 18 109/51 95 Room Air 10/21 2301 100.0 110 20 112/59 93 Room Air 10/21 1833 99.3 110 18 129/59 95 Room Air I&O 10/21 0800 10/21 1600 10/22 0000 Intake Total 1854 200 907 Output Total 350 190 315 Balance 1504 10 592 General Appearance Alert, Oriented X3, No acute distress HEENT Atraumatic, EOMI, Moist mucous membranes Lungs Clear to auscultation, Normal air movement Neck No JVD, No masses, 2+ carotid pulse wo bruit Cardiovascular Normal S1 and S2, No murmurs, gallops, rubs Abdomen Soft, - tenderness to palpation - surgical scar looks appropriate Extremities No clubbing, No edema, Normal pulses, No tenderness, Strength = upper ext's, Strength = lower ext's, Geraldo's sign negative Skin No Breakdown, No Significant Lesions Psych/Mental Status Mental status normal, Confused LAB Results Laboratory Tests 10/22 10/22 0530 0530 Chemistry Plasma Sodium (136 - 145 mmol/L) 140 Plasma Potassium (3.5 - 5.1 mmol/L) 3.4 Plasma Chloride (98 - 107 mmol/L) 106 CO2 (Enzymatic) (21 - 32 mmol/L) 24 BUN (7 - 18 mg/dL) 11 Creatinine (0.6 - 1.3 mg/dL) 0.6 Est GFR ( Amer) (mL/min) >60 Est GFR (Non-Af Amer) (mL/min) >60 Glucose (70 - 110 mg/dL) 130 Plasma Calcium (8.5 - 10.1 mg/dL) 7.5 Triglycerides (30 - 200 mg/dL) 46 Cholesterol (140 - 200 mg/dL) 90 LDL Cholesterol, Calc (mg/dL) 28 HDL Cholesterol (32 - 96 mg/dL) 53 LDL/HDL Ratio 0.5 Cholesterol/HDL Ratio 1.7 Coronary Risk Interp (0.4 - 1.0) 0.4 Hematology WBC (4.5 - 11.5 K/uL) 8.5 RBC (4.00 - 5.20 M/uL) 3.55 Hgb (12.0 - 16.0 gm/dL) 10.6 Hct (36.0 - 46.0 %) 32.3 MCV (80 - 100 fL) 91 MCH (26 - 34 pg) 30 RDW (11.6 - 14.8 %) 14.2 Neut % (Auto) (50 - 75 %) 78.4 Lymph % (Auto) (25 - 40 %) 14.4 [place] % (Auto) (3 - 14 %) 6.7 Eos % (Auto) (0 - 4 %) 0.4 Baso % (Auto) (0 - 2 %) 0.1 Plt Count, EDTA (150 - 400 K/uL) 146 PUBS MCHC (31 - 37 g/dL) 33 Assessment and Plan Problem List 1. SBO (small bowel obstruction) Plan - pt had evidence of small bowel obstruction secondary to volvulus - pt is s/p ex lap with small bowel resection - pt tolerated the procedure well and has minimal pain - awaiting return of bowel function - pt is npo except for medications 2. Diabetes Plan - pt has an established history of diabetes - currently patients blood sugars have been well controlled - will c/w npo status - will c/w sliding scale coverage for the time being 3. Hypertension Plan - pt has an established history of hypertension - will c/w metoprolol 12.5 mg bid
[2016-10-22 18:21] VITALS: BP 136/68
--- NOTE | 2016-10-22 19:32 | NUR ---
Pt denies need to urinate. Discussed use of bladder scan and pt attempted to urinate with 350 dark mason urine output in 8 hours. No pain with urination. Called hospitalist MD Sears to notify. IV fluid rate is to be increased from 125 ml/h to 200 ml/h, monitor for 5 hours, if no change notify [facility]. Faxed order and rate changed on IV. wctm.
--- NOTE | 2016-10-22 21:20 | NUR ---
Around 2230 Pt will ambulate hallway and attempt to urinate. Monitoring output. Daugter is aware and helping encourage PT to void.
[2016-10-23] VITALS (7 sets, daily range): BP systolic 123–141; BP diastolic 59–83
--- NOTE | 2016-10-23 00:12 | NUR ---
RESTING IN BED, NGT TO LIS SCANT AMOUNT OUTPUT IN CANISTER. ABDOMINAL BINDER IN PLACE, MADAY PATENT NO OUTPUT AT THIS TIME. DENIES DISCOMFORT. DAUGHTER AT BEDSIDE.
--- NOTE | 2016-10-23 00:30 | NUR ---
IVF RATE CHANGED FROM 200CC TO 125 CC ORDERED, URINE OUTPUT IN THE LAST 5 HOURS 850CC.
--- NOTE | 2016-10-23 03:20 | NUR ---
SPO2 93% ON ROOM AIR, PLACE O2 @ 3L PER NC ORDERED TO MAINTAIN SPO2 @ 96%, SPO2 98% AT THIS TIME.
--- NOTE | 2016-10-23 05:36 | NUR ---
AMBULATING IN HALLWAY WITH DAUGHTER.
--- NOTE | 2016-10-23 09:21 | DIAGNOSTIC IMAGING REPORT ---
PROCEDURE: XR ABDOMEN 1 VIEW INDICATION: post op SBO partial small bowel resection TECHNIQUE: AP upright view. COMPARISON: Upright KUB 10/20/2016 FINDINGS: Interval progression of moderate dilated central loops of small bowel with air fluid levels. There increasing air in the large bowel with nonspecific air-fluid levels. There are new marco antonio seen in the right lower quadrant. Interval placement of NG tube coiled in the stomach. No masses or unusual calcifications. Osseous structures are unremarkable. IMPRESSION: 1. NG tube in place 2. New right lower quadrant surgical changes with findings suggestive of a postop ileus. 3. Results discussed with Dr. Reyna
--- NOTE | 2016-10-23 10:06 | DIAGNOSTIC IMAGING REPORT ---
PROCEDURE: XR SBFT WITH GASTROGRAFIN INDICATION: Post op SBO with partial small bowel resection TECHNIQUE: 240 ml of gastrographin via NG tube. COMPARISON: Of mercury 10/23/[address] abdomen/pelvis 10/20/2016. FINDINGS: Single KUB at 40 minutes demonstrates right lower quadrant and lower midline surgical clips. Left lower quadrant Mariola drain. Contrast throughout the small bowel with normal caliber and mucosal pattern. There is contrast in the ascending colon. No abnormal contrast collection to suggest a week. NG tube in place. Moderate degenerative changes of the spine. IMPRESSION: 1. No evidence of bowel obstruction. 2. Results discussed with Dr. Reyna
--- NOTE | 2016-10-23 11:07 | NUR ---
REMOVED NG TUBE. PATIENT TOLERATED WELL.
--- NOTE | 2016-10-23 12:31 | NUR ---
NUTRITION FOLLOW UP NOTE: Per report pt NG out, up ambulating, having BMs. Pt to start on clear liquids today, no red dyes recommended just in case further studies need to be done during this transitional process. Rec continue to advance diet as tolerated. Suggest Cardiac and Consistent carb when pt able to tolerated solid foods 2/2 hx CAD and diabetes. RD to follow up and monitor oral nutrition progress prn/protocol.
--- NOTE | 2016-10-23 15:52 | Progress Note ---
Subjective General Patient seen and examined. Patient making significant improvements in overall status. Patient has return of bowel function and her NG tube was dc'd. Patient is able to tolerate a clear liquid diet. Constitutional Denies: Fever, Chills, Sweats, Weakness, Malaise, Other. ENT Denies: Ear Pain, Ear Discharge, Nose Pain, Nasal Discharge, Nasal Congestion, Mouth Pain, Mouth Swelling, Throat Pain, Throat Swelling, Other. Respiratory Denies: Cough, Dry, SOB w/exertion, Wheezing, Hemoptysis, Pleuritic Pain, Sputum , Other. Cardiovascular Denies: Chest Pain, Palpitations, Orthopnea, PND, Edema, Light-headedness, Other. Gastrointestinal Denies: Nausea, Vomiting, Abdominal Pain, Diarrhea, Constipation, Melena, Hematochezia, Other. Genitourinary Denies: Dysuria, Frequency, Incontinence, Hematuria, Retention, Other. Musculoskeletal Denies: Neck Pain, Shoulder Pain, Arm Pain, Back Pain, Hand Pain, Leg Pain, Foot Pain, Other. Skin Denies: Rash, Lesions, Jaundice, Bruising, Other. Neurological Denies: Weakness, Numbness, Incoordination, Change in speech, Confusion, Seizures, Other. Physical Exam Vital Signs / I&Os Vital Signs Date Time Temp Pulse Resp B/P Pulse O2 O2 Flow FiO2 Ox Delivery Rate 10/23 1444 97.7 81 18 123/59 99 Room Air 10/23 1046 97.7 90 18 129/65 98 Room Air 0.0 10/23 0903 3.0 10/23 0843 Room Air 0.0 10/23 0640 98.4 93 18 125/83 98 Room Air 0.0 10/23 0322 98 3.0 10/23 0234 97.9 88 18 141/76 93 Room Air 10/23 0011 98.1 94 18 125/69 93 Room Air 10/22 1821 97.7 93 18 136/68 100 Room Air I&O 10/22 0800 10/22 1600 10/23 0000 Intake Total 1430 1241 739 Output Total 400 464 810 Balance 1030 777 -71 General Appearance Alert, Oriented X3, No acute distress HEENT Normal exam, Atraumatic, EOMI, Moist mucous membranes Lungs Clear to auscultation, Normal air movement Cardiovascular Normal S1 and S2, No murmurs, gallops, rubs Abdomen Soft, No tenderness, No rebound, No masses, - pain to palpation of surgery site Extremities No edema, Normal pulses, No tenderness, Strength = upper ext's, Strength = lower ext's Skin No Significant Lesions Neurological Normal speech, Sensation intact, Reflexes 2+ and equal, Cranial nerves intact, No lateralizing signs Psych/Mental Status Mood normal LAB Results Laboratory Tests 10/23 0550 Chemistry Plasma Sodium (136 - 145 mmol/L) 141 Plasma Potassium (3.5 - 5.1 mmol/L) 4.7 Plasma Chloride (98 - 107 mmol/L) 107 CO2 (Enzymatic) (21 - 32 mmol/L) 24 BUN (7 - 18 mg/dL) 4 Creatinine (0.6 - 1.3 mg/dL) 0.6 Est GFR ( Amer) (mL/min) >60 Est GFR (Non-Af Amer) (mL/min) >60 Glucose (70 - 110 mg/dL) 134 Plasma Calcium (8.5 - 10.1 mg/dL) 8.1 Total Bilirubin (0.0 - 1.0 mg/dL) 2.0 AST (15 - 37 U/L) 81 ALT (12 - 78 U/L) 25 Alkaline Phosphatase (46 - 116 U/L) 67 Total Protein (6.4 - 8.2 g/dL) 5.8 Albumin (3.3 - 5.0 g/dL) 3.0 Hematology WBC (4.5 - 11.5 K/uL) 10.0 RBC (4.00 - 5.20 M/uL) 3.78 Hgb (12.0 - 16.0 gm/dL) 11.5 Hct (36.0 - 46.0 %) 34.5 MCV (80 - 100 fL) 91 MCH (26 - 34 pg) 31 RDW (11.6 - 14.8 %) 14.5 Neut % (Auto) (50 - 75 %) 73.6 Lymph % (Auto) (25 - 40 %) 15.0 [place] % (Auto) (3 - 14 %) 6.5 Eos % (Auto) (0 - 4 %) 4.7 Baso % (Auto) (0 - 2 %) 0.2 Plt Count, EDTA (150 - 400 K/uL) 162 PUBS MCHC (31 - 37 g/dL) 33 Assessment and Plan Problem List 1. SBO (small bowel obstruction) Plan - s/p ex lap with small bowel resection - Pt had ng tube dc'd after return of bowel functon was achieved - will advance diet as tolerated - will continue to advance diet, if patient continues to do well anticipated dc in 2 days 2. Diabetes Plan - blood sugars are controlled - will continue to hold metformin and continue with sliding scale 3. Hypertension Plan - will c/w home dose of metoprolol - will continue to trend bp
--- NOTE | 2016-10-23 21:30 | NUR ---
Patient has been mobilising round the wong and denies any pain nor nausea. MADAY drain yielding very scanty amount of serosanguinous fluid. daughter to stay in overnight with permission from [facility].
[2016-10-24 03:17] VITALS: BP 117/60
[2016-10-24 07:00] VITALS: BP 124/66
--- NOTE | 2016-10-24 11:03 | Provider's Discharge Care Plan ---
Problem, Goal, Plan Problem List 1. SBO (small bowel obstruction) Instructions: - follow up with the surgical clinic on 10/30 - slowly advance your diet from clear liquids to regular diet over the next 3 days 2. Diabetes Instructions: Take meds as directed 3. Hypertension Instructions: Take meds as directed
--- NOTE | 2016-10-24 11:24 | Discharge Summary ---
Discharge Summary Report Admit Date 10/21/16 Discharge Date 10/24/16 Admission Diagnosis small bowel obstruction with incarceration Discharge Diagnosis small bowel obstruction with incarceration status post small bowel resection and exploratory laparotomy Brief History This is a 89-year-old male with history of coronary artery disease, peripheral artery disease and CVAs, presenting with complaints of initially chest pain. The patient's chest pain did seem to resolve with nitroglycerin in the emergency department; however, after several hours of monitoring, abdominal and/ or chest pain returned. The emergency department physician was concerned that the patient may be actually having abdominal pain and gallbladder discomfort. A CTA of his thorax, abdomen, and pelvis showed a distended gallbladder that contained a 4.7 cm stone at the gallbladder neck. The patient did remain chest pain free throughout the night. During my interview with this patient, the patient was fairly somnolent as he just received Demerol in addition to the morphine he received in the emergency department. Hospital Course Patient was admitted for small bowel obstruction. Patient was later seen to have elevated lactate and evidence of incarceration. Patient underwent immediate exploratory laparotomy with small bowel resection and re-anastamosis. Patient tolerated the procedure very well and had little to no pain afterward. Patient in 2 days was able to tolerate a diet and was able to ambulate without difficulty. Patients incision looked appropriate. It was decided that the patient could be discharged today. She will be discharged, she will resume all her home medications. Patient will follow up in 1 week with [facility]. General Appearance Alert, Oriented X3, No acute distress Lungs Normal air movement Cardiovascular Normal S1, Normal S2, No murmurs, Gallops Abdomen Soft, No tenderness Skin No Breakdown, No Significant Lesions Lab/Imaging Laboratory Tests 10/24 0500 Chemistry Plasma Sodium (136 - 145 mmol/L) 143 Plasma Potassium (3.5 - 5.1 mmol/L) 3.7 Plasma Chloride (98 - 107 mmol/L) 109 CO2 (Enzymatic) (21 - 32 mmol/L) 24 BUN (7 - 18 mg/dL) 4 Creatinine (0.6 - 1.3 mg/dL) 0.6 Est GFR ( Amer) (mL/min) >60 Est GFR (Non-Af Amer) (mL/min) >60 Glucose (70 - 110 mg/dL) 94 Plasma Calcium (8.5 - 10.1 mg/dL) 7.8 Total Bilirubin (0.0 - 1.0 mg/dL) 1.3 AST (15 - 37 U/L) 49 ALT (12 - 78 U/L) 26 Alkaline Phosphatase (46 - 116 U/L) 57 Total Protein (6.4 - 8.2 g/dL) 5.4 Albumin (3.3 - 5.0 g/dL) 2.4 Hematology WBC (4.5 - 11.5 K/uL) 6.5 RBC (4.00 - 5.20 M/uL) 3.34 Hgb (12.0 - 16.0 gm/dL) 10.0 Hct (36.0 - 46.0 %) 30.3 MCV (80 - 100 fL) 91 MCH (26 - 34 pg) 30 RDW (11.6 - 14.8 %) 14.2 Neut % (Auto) (50 - 75 %) 68.6 Lymph % (Auto) (25 - 40 %) 17.5 [place] % (Auto) (3 - 14 %) 7.1 Eos % (Auto) (0 - 4 %) 6.5 Baso % (Auto) (0 - 2 %) 0.3 Plt Count, EDTA (150 - 400 K/uL) 161 PUBS MCHC (31 - 37 g/dL) 33 Discharge Instructions/Meds - follow up in surgical clinic - take medications as prescribed
--- NOTE | 2016-10-24 13:11 | NUR ---
PATIENT DISCHARGED. EDUCATED PATIENT ON CARE OF MADAY DRAIN, SURGICAL SITE PRECAUTIONS, DIET RESTRICTIONS, AND TO CALL FOR A FOLLOW UP APT Wednesday. DC'D IV WNL. ALL BELONGINGS WENT HOME WITH PATIENT. NO HOME MEDS HERE. WHEELED PATIENT TO THE CAR. VSS. DENIED PAIN.
== END 2016-10-24 12:30 | disposition home or self-care (01) | DRG 330 ==
LOC: ED SRH 21:41 → TRANS SRH 10-21 01:01 → ACUTE2 SRH 10-21 01:01
PROVIDERS: Specialist; ADMIT Family Medicine
PROC: 0D9670Z Drainage of Stomach with Drainage Device, Via Natural or Artificial Opening (ICD-10-PCS; 2016-10-21)
PROC: 0DBS0ZZ (ICD-10-PCS; principal; 2016-10-21 07:30)
PROC: 0DN80ZZ Release Small Intestine, Open Approach (ICD-10-PCS; principal; 2016-10-21 07:30)
PROC: 0DNS4ZZ (ICD-10-PCS; principal; 2016-10-21 07:30)
PROC: 0WQF0ZZ Repair Abdominal Wall, Open Approach (ICD-10-PCS; principal; 2016-10-21 07:30)
PROC: 0DBB0ZZ Excision of Ileum, Open Approach (ICD-10-PCS; principal; 2016-10-21 07:30)
DX: K43.0 Incisional hernia with obstruction, without gangrene (principal); K92.2 Gastrointestinal hemorrhage, unspecified; R50.81 Fever presenting with conditions classified elsewhere; R74.0 Nonspecific elevation of levels of transaminase and lactic acid dehydrogenase [LDH]; I10 Essential (primary) hypertension; E11.9 Type 2 diabetes mellitus without complications; I25.10 Atherosclerotic heart disease of native coronary artery without angina pectoris; Z95.5 Presence of coronary angioplasty implant and graft; Z79.84 Long term (current) use of oral hypoglycemic drugs; I25.2 Old myocardial infarction
CPT/HCPCS: 50002; 60001; 70002; 80011; 80102; 80212; 80248; 80298; 80813; 81447; 81636; 81638; 82794; 82897; 83587; 83919; 83982; 84038; 84044; 84526; 84532; 90004; 90047; 90065; 90074; 90098; 90100; 90616; 91162; 91163; 91286; 92031; 92235; 92530; 92690; 92720; 93004; 95059